=== PATIENT | male | born 1995 | race Caucasian/White ===

== ENCOUNTER 2017-10-04 13:23 | Emergency (ER) | payer OTHER ==
[2017-10-04] MEDS ORDERED: ONDANSETRON 4 MG TAB.RAPDIS PO ONE (13:45)
[2017-10-04] MEDS ORDERED: ACETAMINOPHEN 325 MG TABLET PO ONE (13:45)
--- NOTE | 2017-10-04 13:48 | ER Document Report ---
ED Medical Screen (RME) - General Chief Complaint: Chest Pain Stated Complaint: CHEST PAIN Time Seen by Provider: 10/04/17 13:45 Notes: pt with sudden onset of left cp and vomiting TRAVEL OUTSIDE OF THE [place] IN LAST 30 DAYS: No - Related Data Allergies/Adverse Reactions: No Known Allergies Allergy (Verified 10/04/17 13:24) Past Medical History - Social History Chew tobacco use (# tins/day): No Frequency of alcohol use: Occasional Drug Abuse: None Renal/ Medical History: Denies: Hx Peritoneal Dialysis Psychiatric Medical History: Reports: Hx Attention Deficit Hyperactivity Disorder Physical Exam - Vital signs Vitals: Temp Pulse Resp BP Pulse Ox 97.6 F 75 18 119/74 98 10/04/17 13:29 10/04/17 13:29 10/04/17 13:29 10/04/17 13:29 10/04/17 13:29 Course - Vital Signs Vital signs: Temp Pulse Resp BP Pulse Ox 97.6 F 75 18 119/74 98 10/04/17 13:29 10/04/17 13:29 10/04/17 13:29 10/04/17 13:29 10/04/17 13:29
[2017-10-04 14:16] LABS: ABSOLUTE LYMPHOCYTES (AUTO) 1.2 10^3/uL (0.5-4.7); ABSOLUTE MONOCYTES (AUTO) 0.3 10^3/uL (0.1-1.4); ABSOLUTE NEUT (AUTO) 4.6 10^3/uL (1.7-8.2); BASOPHILS % (AUTO) 0.6 % (0-2); EOSINOPHILS % (AUTO) 0.4 % (0-6); HEMOGLOBIN 14.1 g/dL (13.5-17.0); LYMPHOCYTES % (AUTO) 18.7 % (13-45); MEAN CORPUSCULAR HEMOGLOBIN 31.1 pg (27.0-33.4); MEAN CORPUSCULAR HGB CONC 34.4 g/dL (32.0-36.0); MEAN CORPUSCULAR VOLUME 90 fl (80-97); MONOCYTES % (AUTO) 5.4 % (3-13); PLATELET COUNT 281 10^3/uL (150-450); RED BLOOD COUNT 4.54 10^6/uL (4.35-5.55); RED CELL DISTRIBUTION WIDTH 12.8 % (11.5-14.0); SEGMENTED NEUTROPHILS % (AUTO) 74.9 % (42-78); TOTAL CELLS COUNTED % (AUTO) 100 %; WHITE BLOOD COUNT 6.2 10^3/uL (4.0-10.5)
[2017-10-04 14:18] LABS: APPEARANCE,URINE CLEAR; BILIRUBIN,URINE NEGATIVE (NEGATIVE); COLOR,URINE YELLOW; GLUCOSE, URINE NEGATIVE (NEGATIVE); KETONES,URINE NEGATIVE (NEGATIVE); LEUKOCYTE ESTERASE,URINE NEGATIVE (NEGATIVE); NITRITE,URINE NEGATIVE (NEGATIVE); PROTEIN,URINE NEGATIVE (NEGATIVE); URINE SPECIFIC GRAVITY 1.013; UROBILINOGEN,URINE NEGATIVE mg/dL (<2.0)
--- NOTE | 2017-10-04 14:33 | RADIOLOGY REPORT (SQ) ---
EXAM DESCRIPTION: CHEST PA/LAT COMPLETED DATE/TIME: 10/04/2017 2:14 pm REASON FOR STUDY: left cp COMPARISON: None. EXAM PARAMETERS: NUMBER OF VIEWS: two views TECHNIQUE: Digital Frontal and Lateral radiographic views of the chest acquired. RADIATION DOSE: NA LIMITATIONS: none FINDINGS: LUNGS AND PLEURA: No opacities, masses or pneumothorax. No pleural effusion. MEDIASTINUM AND HILAR STRUCTURES: No masses or contour abnormalities. HEART AND VASCULAR STRUCTURES: Heart normal size. No evidence for failure. BONES: No acute findings. HARDWARE: None in the chest. OTHER: No other significant finding. IMPRESSION: NO SIGNIFICANT RADIOGRAPHIC FINDING IN THE CHEST. TECHNICAL DOCUMENTATION: JOB ID: [id number] [employer]- All Rights Reserved Reading location - IP/workstation name: [email or web address]
--- NOTE | 2017-10-04 14:34 | ER Document Report ---
ED General - General Mode of Arrival: Ambulatory Information source: Patient TRAVEL OUTSIDE OF THE [place] IN LAST 30 DAYS: No <EMILY DE LUNA - Last Filed: 10/04/17 15:53> <AMY LYONS - Last Filed: 10/04/17 23:17> - General Chief Complaint: Chest Pain Stated Complaint: CHEST PAIN Time Seen by Provider: 10/04/17 13:45 Notes: Patient is a 22-year-old male who presents to the emergency department today with complaints of reproducible left-sided chest wall pain which is intermittent in nature beginning at 0900 this morning. Patient states his pain is reproduced with certain movements of his LUE. 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 Patient states he recently is getting over a cold that ended approximately 2 days ago. Patient has a history of anxiety and he states he thinks this may have something to do with his pain today. Patient denies any recent travel or family history of sudden cardiac . (EMILY DE LUNA) - Related Data Allergies/Adverse Reactions: No Known Allergies Allergy (Verified 10/04/17 13:24) Past Medical History - General Information source: Patient - Social History Smoking Status: Current Every Day Smoker Cigarette use (# per day): Yes Chew tobacco use (# tins/day): No Frequency of alcohol use: Occasional Drug Abuse: None Lives with: Family Family History: Reviewed & Not Pertinent Patient has suicidal ideation: No Patient has homicidal ideation: No - Medical History Medical History: Negative Renal/ Medical History: Denies: Hx Peritoneal Dialysis Psychiatric Medical History: Reports: Hx Attention Deficit Hyperactivity Disorder Surgical Hx: Negative <EMILY DE LUNA - Last Filed: 10/04/17 15:53> Review of Systems - Review of Systems Constitutional: No symptoms reported EENT: No symptoms reported Cardiovascular: No symptoms reported Respiratory: See HPI, Other - reproducible chest wall pain Gastrointestinal: No symptoms reported Genitourinary: No symptoms reported Male Genitourinary: No symptoms reported Musculoskeletal: See HPI, Joint pain - left shoulder movements reproduce chest wall pain Skin: No symptoms reported Hematologic/Lymphatic: No symptoms reported Neurological/Psychological: No symptoms reported -: Yes All other systems reviewed and negative <EMILY DE LUNA - Last Filed: 10/04/17 15:53> Physical Exam <EMILY DE LUNA - Last Filed: 10/04/17 15:53> <MAY LYONS Enrrique - Last Filed: 10/04/17 23:17> - Vital signs Vitals: Temp Pulse Resp BP Pulse Ox 97.6 F 75 18 119/74 98 10/04/17 13:29 10/04/17 13:29 10/04/17 13:29 10/04/17 13:29 10/04/17 13:29 - Notes Notes: Physical Exam: General: Alert, appears well. HEENT: Normocephalic. Atraumatic. PERRL. Extraocular movements intact. Oropharynx clear. Neck: Supple. Non-tender. Respiratory: No respiratory distress. Reproducible chest wall tenderness with palpation. Clear and equal breath sounds bilaterally. Cardiovascular: Regular rate and rhythm. Abdominal: Normal Inspection. Non-tender. No distension. Normal Bowel Sounds. Back: Non-tender. No deformity or step off. Extremities: Moves all four extremities. Upper extremities: Normal ROM. Complains of pain in chest with certain movements of LUE. Lower extremities: Normal inspection. No edema. Normal ROM. Neurological: Normal cognition. AAOx4. Normal speech. Psychological: Normal affect. Normal Mood. Skin: Warm. Dry. Normal color. (EMILY DE LUNA) Course - Laboratory Result Diagrams: 10/04/17 14:00 10/04/17 14:00 <EMILY DE LUNA - Last Filed: 10/04/17 15:53> - Laboratory Result Diagrams: 10/04/17 14:00 10/04/17 14:00 - Diagnostic Test Radiology reviewed: Reports reviewed - NAD - EKG Interpretation by Sc EKG shows normal: Sinus rhythm Rate: Normal Rhythm: NSR - Early repol <AMY LYONS Enrrique - Last Filed: 10/04/17 23:17> - Re-evaluation Re-evalutation: 10/04/17 14:43 Patient's pain is reproducible with palpation and also when patient flexes his pectoral muscles. 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 No concerning findings on chest x-ray EKG or labs that were drawn. Patient signs and symptoms consistent with muscular skeletal strain at this time. PERC negative, no hx of sudden in family. 10/04/17 15:29 (AMY LYONS) - Vital Signs Vital signs: Temp Pulse Resp BP Pulse Ox 97.6 F 75 16 121/91 H 97 10/04/17 13:29 10/04/17 13:29 10/04/17 15:01 10/04/17 15:01 10/04/17 15:01 Discharge <EMILY DE LUNA - Last Filed: 10/04/17 15:53> <AMY LYONS - Last Filed: 10/04/17 23:17> - Discharge Clinical Impression: Chest wall pain Condition: Good Disposition: HOME, SELF-CARE Instructions: Chest Wall Pain ([facility]) Prescriptions: Naproxen 500 mg PO BID PRN #30 tablet PRN Reason: Forms: Return to Work Scribe Attestation: 10/04/17 23:17 I personally performed the services described documentation, reviewed and edited the documentation which was dictated to describe my presence, and it accurately records my words and actions. (AMY LYONS)
[2017-10-04 14:38] LABS: ALANINE AMINOTRANSFERASE 34 U/L (21-72); ALBUMIN 4.8 g/dL (3.5-5.0); ALKALINE PHOSPHATASE 39 U/L (38-126); ANION GAP 10 (5-19); ASPARTATE AMINO TRANSFERASE 26 U/L (17-59); BILIRUBIN,DIRECT 0.3 mg/dL (0.0-0.4); BILIRUBIN,TOTAL 0.8 mg/dL (0.2-1.3); BLOOD UREA NITROGEN 13 mg/dL (7-20); CALCIUM 9.6 mg/dL (8.4-10.2); CARBON DIOXIDE 27 mmol/L (22-30); CHLORIDE 103 mmol/L (98-107); GLUCOSE 85 mg/dL (75-110); POTASSIUM 3.9 mmol/L (3.6-5.0); SODIUM 140.1 mmol/L (137-145); TOTAL PROTEIN 7.5 g/dL (6.3-8.2)
[2017-10-04] MEDS ORDERED: KETOROLAC TROMETHAMINE 60 MG/2 ML SDV IM ONE (15:00)
[2017-10-04 15:53] VITALS: BP 121/91
--- NOTE | 2017-10-04 19:15 | EKG REPORT ---
SEVERITY:- NORMAL ECG - SINUS RHYTHM ST ELEV, PROBABLE NORMAL EARLY REPOL PATTERN : Confirmed by: Tim Nelson MD 04-Oct-2017 19:14:54
== END 2017-10-04 16:00 | disposition home or self-care (01) ==
LOC: ER 13:23
DX: R07.89 Other chest pain (principal); F17.210 Nicotine dependence, cigarettes, uncomplicated
CPT/HCPCS: 93005; 99285; 96372; 36415; 83690; 85025; 80053; 81001; 71046; 93010; J1885; S0119